=== PATIENT | female | born 1970 ===

== ENCOUNTER 2016-12-20 11:36 | Outpatient (CLI) | payer OTHER ==
--- NOTE | 2016-12-21 09:00 | Mammography Report ---
BILATERAL DIGITAL SCREENING MAMMOGRAM with CAD : 12/20/16 11:36:00 CLINICAL: Routine screening. COMPARISON:Previous benign left biopsy and bilateral breast surgery presumed to be a bilateral reduction mammoplasty. FINDINGS: The breasts are heterogeneously dense, which may obscure small masses.An oval circumscribed low density left arm mass with the biopsy clip. No other mass, architectural distortion or suspicious calcifications. IMPRESSION: No mammographic evidence of malignancy. BI-RADS CATEGORY: 2 -- Benign RECOMMENDATION: Routine mammographic screening in one year. COMMENT: Patient follow-up letters are generated by our [employer] application.
== END 2016-12-20 11:37 | disposition home or self-care (01) ==
LOC: SPVWC 11:36
PROVIDERS: ATTEND Family Medicine
DX: Z12.31 Encounter for screening mammogram for malignant neoplasm of breast (principal)
CPT/HCPCS: 77067; G0202